=== PATIENT | male | born 1995 | race African-American/Black ===

== ENCOUNTER 2018-01-06 00:12 | Emergency (ER) | payer OTHER ==
[2018-01-06 00:17] VITALS: O2SAT 96
[2018-01-06 00:20] VITALS: TEMP 36.3
--- NOTE | 2018-01-06 00:27 | EMERGENCY ROOM VISIT NOTE ---
History Report prepared by Rajiibe: Amy Mueller Under the Supervision of: Dr. Fco Miles M.D. First contact with patient: 00:16 Stated Complaint: ALCOHOL History of Present Illness The patient is a 22 year old male who presents to the Emergency Room with complaints of an episode of alcohol overdose that occurred just prior to arrival. Per EMS, the police found the patient lying in the grass near the road. The patient has been vomiting but has stopped vomiting fluid. The patient is currently unconscious secondary to alcohol intoxication. HPI limited secondary to intoxication. Source of History: EMS History Limited By: intoxication Onset: just prior to arrival Position: other (generalized) Quality: other (alcohol overdose) Timing: other (episode) Associated Symptoms: + vomiting Review of Systems See HPI for pertinent positives & negatives. A total of 10 systems reviewed and were otherwise negative. Past Medical & Surgical Medical Problems: (1) No Known Active Medical Problems Family History No pertinent family history Social History Alcohol Use: other (yes) Marital Status: single Occupation Status: [employer] student Current/Historical Medications No Active Prescriptions or Reported Meds Allergies Coded Allergies: Amoxicillin (Verified Allergy, Unknown, CHILDHOOD ALLERGY, 01/06/18) Physical Exam Vital Signs Date Time Temp Pulse Resp B/P (MAP) Pulse Ox O2 Delivery O2 Flow Rate FiO2 01/06/18 05:06 72 16 93/31 97 01/06/18 04:36 70 15 78/41 96 01/06/18 04:34 65 01/06/18 04:31 70 15 75/39 99 01/06/18 04:06 68 15 82/37 99 01/06/18 04:01 01/06/18 03:36 56 14 110/62 99 01/06/18 03:06 57 14 128/77 01/06/18 03:00 81 17 128/77 100 Room Air 01/06/18 02:36 69 16 99 01/06/18 02:31 103/46 01/06/18 02:06 68 15 99 01/06/18 02:01 72 14 104/43 100 01/06/18 01:42 72 15 116/49 01/06/18 01:01 69 15 107/48 98 01/06/18 00:50 118/55 01/06/18 00:49 67 15 118/55 98 Room Air 01/06/18 00:42 89 19 98 01/06/18 00:21 69 01/06/18 00:20 36.3 74 16 110/61 96 Room Air 01/06/18 00:18 110/61 01/06/18 00:17 96 Room Air Physical Exam Vital signs reviewed. General: Odor of EtOH in the breath, disheveled 22-year-old male. No signs of trauma. HEENT: Mild scleral injection bilaterally, PERRLA, neck supple, dry mucous membranes. Cardiovascular: Regular rate and rhythm, no extra sounds. Pulmonary: Clear to auscultation bilaterally, normal work of breathing. Abdomen: Soft, nontender, nondistended, positive bowel sounds. Musculoskeletal: Upper and lower extremities atraumatic, no peripheral edema Skin: Warm, dry, no rash. Atraumatic. Neurologic: Patient is currently nonverbal. Medical Decision & Procedures Laboratory Results 01/06/18 00:20 Test 01/06/18 00:20 Anion Gap 13.0 mmol/L (3-11) Estimated GFR () 106.7 Estimated GFR (Non- 92.1 BUN/Creatinine Ratio 13.6 (10-20) Calcium Level 8.3 mg/dl (8.5-10.1) Ethyl Alcohol mg/dL 188.0 mg/dl (0-3) Labs reviewed by ED physician. Medications Administered Medications (Trade) Dose Ordered Sig/Greta Route Start Time Stop Time Status Last Admin Dose Admin Ondansetron HCl (Zofran Odt) 4 mg NOW STAT PO 01/06/18 00:43 01/06/18 00:44 DC 01/06/18 00:47 4 MG ED Course 0018: Past medical records reviewed. The patient was evaluated in room A12A. A complete history and physical examination was performed. 0530: Upon reexamination the patient is resting. I discussed results and treatment plan with the patient. He verbalizes agreement and understanding. The patient is ready for discharge. Medical Decision Etiologies such as alcohol intoxication, toxicologic, infection, hypoglycemia, electrolyte abnormalities, cardiac sources, intracerebral event, neurologic, as well as others were entertained. This is a 22-year-old male who was found laying by the side of the road by police. The patient arrives during a period of high volume and high acuity during single provider coverage. The patient is actively vomiting upon arrival to the emergency department. I did offer to call this patient's parents however at this point he is declining. He was given Zofran here in the emergency department. He was placed on the cardiac technologist and aspiration precautions were taken. An alcohol level was obtained. After some time the patient's alcohol level did clear. I do feel that the patient is safe enough to be discharged home. I strongly recommended that the patient discuss this visit with his parents. Medication Reconcilliation Current Medication List: was personally reviewed by me Impression Primary Impression: Alcoholic intoxication Scribe Attestation The scribe's documentation has been prepared under my direction and personally reviewed by me in its entirety. I confirm that the note above accurately reflects all work, treatment, procedures, and medical decision making performed by me. Departure Information Dispostion Home / Self-Care Prescriptions No Active Prescriptions or Reported Meds Referrals No Doctor, Assigned (PCP) Forms HOME CARE DOCUMENTATION FORM, IMPORTANT VISIT INFORMATION Additional Instructions STRONGLY encourage you to discuss this visit with your parents! IWONA= .180 @ 2400, sober @ 0500 You have been examined and treated today on an emergency basis only. This is not a substitute for, or an effort to provide, complete comprehensive medical care. It is impossible to recognize and treat all injuries or illnesses in a single emergency department visit. It is therefore important that you follow up closely with [facility]. Call as soon as possible for an appointment. Thank you for your time and consideration. I look forward to speaking with you again soon. Please don't hesitate to call us if you have any questions. Problem Qualifiers Primary Impression: Alcoholic intoxication Complication of substance-induced condition: uncomplicated Qualified Codes: F10.920 - Alcohol use, unspecified with intoxication, uncomplicated
[2018-01-06] MEDS ORDERED: ONDANSETRON 4MG OD TAB PO STA (00:43)
[2018-01-06 00:57] LABS: BLOOD UREA NITROGEN 16 mg/dl (7-18); CALCIUM 8.3 mg/dl (8.5-10.1); CARBON DIOXIDE 20 mmol/L (21-32); CREATININE 1.14 mg/dl (0.60-1.40); GLUCOSE 99 mg/dl (70-99); POTASSIUM 3.1 mmol/L (3.5-5.1); SODIUM 139 mmol/L (136-145)
[2018-01-06 05:06] VITALS: BP 93/31; PULSE 72; O2SAT 97
== END 2018-01-06 05:30 | disposition home or self-care (01) ==
LOC: C.EDA 00:14
DX: F10.929 Alcohol use, unspecified with intoxication, unspecified (principal); Y90.6 Blood alcohol level of 120-199 mg/100 ml; Z88.0 Allergy status to penicillin